=== PATIENT | male | born 1940 | race Caucasian/White ===

== ENCOUNTER → 2018-01-01 | Outpatient (CLI) | payer OTHER ==
[~2018-01-01] MED LIST: AMLODIPINE BESY10 MG PO; COLCHICINE 0.60.6 M1 PO; COZAAR 50 MG TA50 M1 PO; HYDREA 500 MG500 M1 PO; HYDROCHLOROTHIA25 M1 PO; LISINOPRIL20 MG PO; PLAVIX 75 MG TA75 MG PO; PREDNISONE 10 M10 M1 PO; SIMVASTATIN40 MG PO; VITAMIN D1000 UNI1 PO
[2018-01-01 09:05] VITALS: BP 146/71
[2018-01-01 09:40] VITALS: BP 132/68
== END ==
LOC: OPONC 08:33
DX: E83.119 Hemochromatosis, unspecified (principal)
CPT/HCPCS: 95100

== ENCOUNTER → 2018-07-15 | Outpatient (CLI) | payer OTHER ==
[2018-07-15 10:05] VITALS: BP 143/68
[2018-07-15 10:30] VITALS: BP 125/63
== END ==
LOC: OPONC 08:26
DX: E83.119 Hemochromatosis, unspecified (principal)
CPT/HCPCS: 95100